=== PATIENT | female | born 1965 | race Two or more races ===

== ENCOUNTER → 2024-02-03 | Outpatient (CLI) | payer BC, SELFPAY ==
--- NOTE | 2024-02-03 | XR_ITS ---
Examination: Lumbar spine 3 views Technique one AP lateral coned lateral lower lumbar spine 3 views Exam date and time: February 03, 2024 1333 hours INDICATIONS: Low back pain 10 years FINDINGS: Moderate osteopenia Lumbar levoscoliosis 20 degrees Suspicious for 2 mm calculus lower pole left kidney No lumbar fracture Diffuse [id number] lumbar degenerative disc disease, most severe L2-L3, L5-S1 No spondylolisthesis IMPRESSION: Lumbar levoscoliosis 20 degrees Mild to moderate diffuse lumbar degenerative disc disease Consider renal sonography follow-up to exclude 2 mm calculus lower pole left kidney
--- NOTE | 2024-02-03 | XR_ITS ---
Examination: Thoracic spine 2 views Technique one AP lateral thoracic spine 2 views Exam date and time: February 03, 2024 1344 hours INDICATIONS: Back pain radiating to the right shoulder beginning 10 years ago. FINDINGS: Moderate osteopenia Thoracic dextroscoliosis 9 degrees No thoracic fracture Mild diffuse thoracic disc narrowing Intact pedicles IMPRESSION: Mild diffuse thoracic disc narrowing
--- NOTE | 2024-02-03 | XR_ITS ---
Examination: Cervical spine 3 views Technique one AP lateral coned AP odontoid cervical spine 3 views Exam date and time: February 03, 2024 1342 hours INDICATIONS: Onset neck pain radiating to the right shoulder beginning 10 years ago. FINDINGS: Adequate alignment cervical vertebral bodies Moderate disc narrowing C5-C6 with posterior osteophyte formation No cervical fracture Intact odontoid IMPRESSION: Moderate degenerative disc disease C5-C6
--- NOTE | 2024-02-03 13:00 | XR_ITS ---
Examination: Screening digital mammography, bilateral Computer aided detection 3-D breast Tomosynthesis, bilateral Date and time of exam: February 03, 2024 1209 hours Compared to mammograms dating to January 07, 2015 Indication: Screening Technique: Nonmagnified MLO, CC views of the breasts to been obtained, reconstructed from 3-D Tomosynthesis images. R2 computer aided detection program utilized for evaluation of suspicious masses and/or abnormal calcifications. 3-D Tomosynthesis images obtained. Findings: Scattered areas of fibroglandular density. Benign calcifications. No interval suspicious masses Impression: BI-RADS category II: Benign Findings. Recommend 1 year follow-up mammogram.
== END | disposition home or self-care (01) ==
LOC: CDIM 11:54
PROVIDERS: PCP Nurse Practitioner Family; Referring Provider Nurse Practitioner Family; Visit Provider Nurse Practitioner Family
DX: Z12.31 Encounter for screening mammogram for malignant neoplasm of breast (principal); R92.323 Mammographic fibroglandular density, bilateral breasts; R92.1 Mammographic calcification found on diagnostic imaging of breast; M41.86 Other forms of scoliosis, lumbar region; M48.04 Spinal stenosis, thoracic region; M51.369 Other intervertebral disc degeneration, lumbar region without mention of lumbar back pain or lower extremity pain; N28.89 Other specified disorders of kidney and ureter; M50.322 Other cervical disc degeneration at C5-C6 level
CPT/HCPCS: 72040; 72070; 72100; 77063; 77067

== ENCOUNTER → 2024-04-06 | Outpatient (CLI) | payer BC, SELFPAY ==
--- NOTE | 2024-04-06 | XR_ITS ---
Examination: Shoulder,left, 3 views Technique: Shoulder AP internal rotation, AP external rotation, Y view shoulder, 3 views Exam date and time :April 06, 2024 1322 hours INDICATIONS: Pelvic pain 6 months FINDINGS: Moderate osteopenia. Mild narrowing right humeral joint Mild osteoarthritis acromioclavicular joint No fracture or shoulder dislocation IMPRESSION: Mild osteoarthritis
== END | disposition home or self-care (01) ==
PROVIDERS: PCP Nurse Practitioner Family; Referring Provider Nurse Practitioner Family; Visit Provider Nurse Practitioner Family
DX: M19.012 Primary osteoarthritis, left shoulder (principal)
CPT/HCPCS: 73030

== ENCOUNTER → 2024-12-18 | Outpatient (CLI) | payer BC, SELFPAY ==
--- NOTE | 2024-12-18 08:53 | XR_ITS ---
EXAMINATION: Lumbar spine 3 views TECHNIQUE: AP lateral: Lateral lower lumbar spine 3 views Date and time: December 18, 2024, 0903 hours INDICATIONS: Low back pain several years. FINDINGS: Moderate osteopenia 2 mm lower pole left renal calculus Lumbar levoscoliosis 20 degrees Diffuse lumbar disc narrowing, moderate to advanced L2-L3 IMPRESSION: Moderate to advanced degenerative disc disease L2-L3 Consider renal sonography to confirm 2 mm lower pole left renal calculus
== END | disposition home or self-care (01) ==
PROVIDERS: PCP Internal Medicine; Referring Provider Internal Medicine; Visit Provider Internal Medicine
DX: M51.360 Other intervertebral disc degeneration, lumbar region with discogenic back pain only (principal)
CPT/HCPCS: 72100